=== PATIENT | male | born 1980 | race Hispanic/Latino ===

== ENCOUNTER 2021-09-02 12:00 | Emergency (ER) | payer OTHER, SELFPAY ==
[~2021-09-02] VITALS: Ht 162.6 cm; Wt 74.8 kg
[2021-09-02] MEDS ORDERED: ACETAMINOPHEN 500 MG TABLET PO ONE (12:30)
[2021-09-02] MEDS ORDERED: ONDANSETRON 4MG INJ IVP ONE (12:30)
[2021-09-02] MEDS ORDERED: 0.9%NACL 1000ML 1,000 ML IV ONE (12:30)
[2021-09-02] MEDS ORDERED: MORPHINE 2 MG SYG IVP ONE (12:30)
[2021-09-02 12:47] LABS: BASOPHILS % (AUTO) 0.3 % (0.0-5.0); EOSINOPHILS % (AUTO) 0.2 % (0.0-8.0); HEMATOCRIT 43.6 % (42-54); LYMPHOCYTES % (AUTO) 6.6 % (21.0-51.0); MEAN CORPUSCULAR HEMOGLOBIN 31.9 pg (27.0-33.0); MEAN CORPUSCULAR HGB CONC 35.1 g/dL (32.0-36.0); MONOCYTES % (AUTO) 5.9 % (3.0-13.0); NEUTROPHILS % (AUTO) 86.6 % (40.0-77.0); PLATELET COUNT (AUTO) 88 K/uL (130-400); RED BLOOD CELL COUNT(AUTO) 4.79 MIL/uL (4.50-6.20); RED CELL DISTRIBUTION WIDTH 12.1 % (11.0-15.5)
[2021-09-02 12:59] LABS: CREATININE 1.2 mg/dL (0.5-1.5); POTASSIUM 3.5 mmol/L (3.5-5.1)
[2021-09-02 13:04] LABS: ALBUMIN 3.8 g/dL (3.5-5.0); BILIRUBIN,TOTAL 0.8 mg/dL (0.2-1.0); TOTAL PROTEIN, SERUM 7.3 g/dL (6.0-8.3)
[2021-09-02 13:16] LABS: CRP QUANTITATIVE 211.4 mg/L (0.00-9.0)
[2021-09-02 13:38] LABS: APPEARANCE,URINE Cloudy (CLEAR); BILIRUBIN,URINE Negative (NEGATIVE); COLOR,URINE Yellow (YELLOW); GLUCOSE, URINE (UA) 250 mg/dL (NEGATIVE); KETONES,URINE Negative (NEGATIVE); LEUKOCYTE ESTERASE ,URINE Large (NEGATIVE); NITRATE,URINE Positive (NEGATIVE); OCCULT BLOOD,URINE Moderate (NEGATIVE); PROTEIN,URINE Trace mg/dL (NEGATIVE)
[2021-09-02 13:47] LABS: BACTERIA,URINE Many /HPF (None Seen)
[2021-09-02 13:48] LABS: SQUAMOUS EPITHELIAL CELL,UR None Seen /HPF (0-2)
[2021-09-02 13:50] VITALS: BP 112/60
[2021-09-02] MEDS ORDERED: CEFTRIAXONE 1G VIAL IVP SCH (14:00)
[2021-09-02] MEDS ORDERED: PHEN-847 PO (14:27)
[2021-09-02] MEDS ORDERED: CEPH500B PO (14:27)
== END 2021-09-02 14:52 | disposition home or self-care (01) ==
LOC: EDH 12:00
DX: N39.0 Urinary tract infection, site not specified (principal); Z20.822 Contact with and (suspected) exposure to COVID-19; Z79.899 Other long term (current) drug therapy
CPT/HCPCS: 36415; 71045; 74176; 80053; 81001; 83605; 83690; 85025; 86140; 87040 ×2; 87077; 87088; 87186; 96361; 96374; 96375; 99285; J0696; J2405

== ENCOUNTER 2021-09-05 22:31 | Emergency (ER) | payer SELFPAY ==
[~2021-09-05] VITALS: Ht 162.6 cm; Wt 75.7 kg
[~2021-09-05 22:31] MED LIST: CEPH500B PO; PHEN-847 PO
[2021-09-05] MEDS ORDERED: LEVOFLOXACIN 750 MG/D5W 150 ML 150 ML IV STA (22:58)
[2021-09-05 23:16] LABS: BASOPHILS % (AUTO) 0.7 % (0.0-5.0); EOSINOPHILS % (AUTO) 1.4 % (0.0-8.0); HEMATOCRIT 43.1 % (42-54); LYMPHOCYTES % (AUTO) 10.5 % (21.0-51.0); MEAN CORPUSCULAR HGB CONC 35.3 g/dL (32.0-36.0); MEAN CORPUSCULAR VOLUME 90.7 fL (79-99); MONOCYTES % (AUTO) 9.6 % (3.0-13.0); PLATELET COUNT (AUTO) 139 K/uL (130-400); RED BLOOD CELL COUNT(AUTO) 4.75 MIL/uL (4.50-6.20); RED CELL DISTRIBUTION WIDTH 11.9 % (11.0-15.5); WHITE BLOOD COUNT (AUTO) 8.8 K/uL (4.8-10.8)
[2021-09-05 23:18] LABS: APPEARANCE,URINE Clear (CLEAR); BILIRUBIN,URINE Negative (NEGATIVE); COLOR,URINE Yellow (YELLOW); GLUCOSE, URINE (UA) Negative (NEGATIVE); KETONES,URINE Negative (NEGATIVE); LEUKOCYTE ESTERASE ,URINE Negative (NEGATIVE); NITRATE,URINE Negative (NEGATIVE); OCCULT BLOOD,URINE Negative (NEGATIVE); PH,URINE 6.5 (5.0-8.0); PROTEIN,URINE Negative (NEGATIVE); UROBILINOGEN,URINE 0.2 mg/dL (0.2-1.0)
[2021-09-05 23:28] LABS: CREATININE 1.1 mg/dL (0.5-1.5); POTASSIUM 3.3 mmol/L (3.5-5.1)
[2021-09-05 23:32] LABS: ALBUMIN 3.8 g/dL (3.5-5.0); BILIRUBIN,TOTAL 0.7 mg/dL (0.2-1.0); TOTAL PROTEIN, SERUM 7.5 g/dL (6.0-8.3)
[2021-09-06 01:45] VITALS: BP 120/87
[2021-09-06] MEDS ORDERED: CIPR-278 PO (02:23)
[2021-09-06] MEDS ORDERED: CELE200 PO (02:23)
[2021-09-06] MEDS ORDERED: LEVOFLOXACIN 750 MG/D5W 150 ML 150 ML IV SCH (09:00)
== END 2021-09-06 02:47 | disposition home or self-care (01) ==
LOC: EDH 22:31
DX: N45.2 Orchitis (principal); Z79.899 Other long term (current) drug therapy
CPT/HCPCS: 36415; 76870; 80053; 81003; 85025; 96365; 99284; J1956

== ENCOUNTER 2025-07-20 11:27 | Emergency (ER) | payer BC, SELFPAY ==
[~2025-07-20] VITALS: Ht 162.6 cm; Wt 79.8 kg
[~2025-07-20 11:27] MED LIST changes: +CELE200 PO; +CIPR-278 PO
[2025-07-20] MEDS ORDERED: KETO10TA2 PO (11:36)
[2025-07-20] MEDS ORDERED: MUPI22OI2 TP (11:36)
[2025-07-20] MEDS ORDERED: AMOX1TAB16 PO (11:36)
--- NOTE | 2025-07-20 11:36 | ERN ---
General Chief Complaint: Finger Injury Stated Complaint: RT HAND/ FINGER Time Seen by MD: 11:28 Time Seen by Midlevel: 11:28 Source: patient History of Present Illness Initial Comments 45-year-old male presents the ER with pain and redness to the base of his nail on his right 3rd digit. This started yesterday and progressively worsened today. Allergies: Coded Allergies: No Known Allergies (Unverified Allergy, Unknown, 09/02/21) Home Meds Active Scripts Celecoxib (Celebrex 200Mg Cap) 200 Mg Cap, 200 MG PO BID for 10 Days, #20 CAP 1 Refill Prov:PEDRO HUTCHISON MD 09/06/21 Ciprofloxacin HCl (Cipro) 500 Mg Tablet, 1 TAB PO BID for 21 Days, #42 TAB 0 Refills Prov:PEDRO HUTCHISON MD 09/06/21 Phenazopyridine HCl (Pyridium) 200 Mg Tab, 200 MG PO TIDPC for 3 Days, #9 TAB TAKE WITH FOOD TO PREVENT STOMACH UPSET. Prov:HERIBERTO THOMAS 09/02/21 Cephalexin Monohydrate (Keflex) 500 Mg Cap, 500 MG PO TID for 7 Days, #21 CAP Prov:HERIBERTO THOMAS 09/02/21 Past Medical History Past Medical History: Diabetes-Type II Past Surgical History: None Family History Family History: Negative Social History Social History: Negative ROS Dictation CONSTITUTIONAL: Negative except for HPI HEAD/FACE: Negative except for HPI EENT: Negative except for HPI RESPIRATORY: Negative except for HPI GASTROINTESTINAL/ABDOMINAL: Negative except for HPI GENITOURINARY: Negative except for HPI MUSCULOSKELETAL: Negative except for HPI INTEGUMENTARY: Negative except for HPI NEUROLOGICAL/PSYCH: Negative except for HPI HEMATOLOGIC/LYMPHATIC: Negative except for HPI All Systems Negative, Except as noted above. 13 point review of systems assessed and all negative except for above. Physical Exam Physical Exam Dictation PHYSICAL EXAM: GENERAL: alert,, awake oriented x 3 HEENT: EOMI, Sclera non icteric, moist mucosa NECK: Supple, no JVD, trachea midline LUNGS: Clear breath sounds bilaterally. No wheezes HEART: Regular rate and rhythm. Normal S1 and S2, without murmurs ABD: Abdomen soft, nontender. Bowel sounds present EXT: Paronychia to the right middle digit NEURO: Alert and oriented to person, follows commands MDM MDM: 45-year-old male presents the ER with pain and redness to the base of his nail on his right 3rd digit. This started yesterday and progressively worsened today. Physical examination is consistent with a paronychia to the right middle finger. Area does not need to be drained at this time but we will start antibiotics. Differential diagnosis: Paronychia, cellulitis, abscess There are no social concerns with this patient. Prescription drug management Prescriptions will include: Mupirocin ointment, Augmentin Medical management and examination interpretation discussions were had by me with other qualified healthcare professionals as indicated for the patient's care. ED Course Orders Procedure Category Date Status Time Ketorolac PHA 07/20/25 Transmitted Tromethamine 30mg/Ml 12:00 *Nursing CPOE 07/20/25 Transmitted Communication: 11:33 Vital Signs Date Time Temp Pulse Resp B/P (MAP) Pulse Ox O2 Delivery O2 Flow Rate FiO2 07/20/25 11:29 98.4 83 20 121/87 99 0 DX & DISP Disposition: Discharge Departure Impression: Primary Impression: Paronychia of finger of right hand Condition: Stable Scripts Mupirocin (Mupirocin Ointment) 2 % Oint 1 APPL TP TID for 7 Days, #22 GM 0 Refills apply to affected area(s) Prov: CALI BREEN 07/20/25 Amoxicillin/Potassium Clav (Amox Tr-K Clv 875-125 mg Tab) 875 Mg-125 Mg Tablet 1 EACH PO BID for 7 Days, #14 TAB 0 Refills Prov: CALI BREEN 07/20/25 Ketorolac Tromethamine (Ketorolac Tromethamine) 10 Mg Tablet 1 TAB PO TID for pain for 5 Days, #15 TAB 0 Refills Prov: CALI BREEN 07/20/25 Additional Instructions: You may apply warm compresses, soaks, elevation. You were prescribed mupirocin ointment which should help with the infection. You were also prescribed oral antibiotics. Referrals: SELF,REFERRAL (PCP) I have reviewed the case, and I agree with, Diagnosis and Plan I performed the substantive portion of the visit. I have reviewed and personally made and approve the management plan that is documented in the note by myself or the MABLE. I acknowledge for responsibility for the patient's management plan. CALI BREEN Jul 20, 2025 11:36
[2025-07-20 12:10] VITALS: BP 119/78; PULSE 83; RESP 16; TEMP 98.5; O2SAT 99
== END 2025-07-20 12:16 | disposition home or self-care (01) ==
LOC: EDH 11:27
DX: L03.011 Cellulitis of right finger (principal); E11.9 Type 2 diabetes mellitus without complications; Z79.899 Other long term (current) drug therapy
CPT/HCPCS: 99284; 96372; J1885